=== PATIENT | female | born 2000 | race Caucasian/White ===

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

== ENCOUNTER 2020-06-26 08:30 | Emergency (ER) | payer OTHER ==
[~2020-06-26] VITALS: Ht 172.7 cm; Wt 96.2 kg
[~2020-06-26 08:30] MED LIST changes: +BISM87SU PO; +ONDA4ODT MM
[2020-06-26] MEDS ORDERED: Aspir 8181 MG PO (08:51)
== END 2020-06-26 11:26 | disposition home or self-care (01) ==
LOC: ER 08:30
DX: G43.909 Migraine, unspecified, not intractable, without status migrainosus (principal); Z79.82 Long term (current) use of aspirin
CPT/HCPCS: 96372-59; 96374; 96375; 99284-25; J0780; J1200; J1885; J3030

== ENCOUNTER 2021-01-02 19:40 | Emergency (ER) | payer OTHER ==
[~2021-01-02] VITALS: Ht 172.7 cm; Wt 86.2 kg
[~2021-01-02 19:40] MED LIST changes: +Aspir 8181 MG PO
== END 2021-01-02 20:46 | disposition home or self-care (01) ==
LOC: ER 19:40
DX: K05.10 Chronic gingivitis, plaque induced (principal); K02.9 Dental caries, unspecified
CPT/HCPCS: 99282

== ENCOUNTER 2022-05-20 08:52 | Emergency (ER) | payer OTHER ==
[~2022-05-20] VITALS: Ht 175.3 cm; Wt 78.0 kg
[2022-05-20 09:26] LABS: BASOPHILS ABSOLUTE AUTO 0.02 K/mm3 (0.00-0.23); BASOPHILS PERCENT AUTO 0 % (0-2); EOSINOPHILS ABSOLUTE AUTO 0.06 K/mm3 (0.00-0.68); EOSINOPHILS PERCENT AUTO 1 % (0-6); Hematocrit 39.5 % (33.0-51.0); Hemoglobin 13.6 g/dL (11.5-16.0); IMMATURE GRAN ABSOLUTE AUTO 0.04 K/mm3 (0.00-0.10); IMMATURE GRAN PERCENT AUTO 0 % (0-1); LYMPHOCYTES ABSOLUTE AUTO 0.74 K/mm3 (0.84-5.20); LYMPHOCYTES PERCENT AUTO 7 % (21-46); MONOCYTES PERCENT AUTO 5 % (4-13); Mean Corpuscular HGB 30.1 pg (26.0-34.0); Mean Corpuscular HGB Conc 34.4 g/dL (31.5-36.5); Mean Corpuscular Volume 87 fL (80-100); Mean Platelet Volume 8.5 fL (9.1-12.4); NEUTROPHILS ABSOLUTE AUTO 9.78 K/mm3 (1.96-9.15); NEUTROPHILS PERCENT AUTO 88 % (41-73); Platelet Count 227 K/mm3 (150-400); RDW Coefficient Variation 12.4 % (11.7-14.2); RDW Standard Deviation 40.2 fL (35.1-46.3); Red Blood Cell Count 4.52 M/mm3 (3.80-5.20); White Blood Cell Count 11.14 K/mm3 (4.00-11.30)
[2022-05-20 09:44] LABS: Albumin, Blood 3.8 g/dL (3.4-5.0); Bilirubin, Total 0.6 mg/dL (0.1-1.0); Bun/Creatinine Ratio 24.4 (12.0-20.0); Calcium, Blood 8.5 mg/dL (8.5-10.1); Creatinine, Blood 0.66 mg/dL (0.40-1.00); Globulin, Blood 3.9 g/dL (2.2-4.0); Potassium, Blood 4.1 mmol/L (3.5-5.5); Total Protein, Blood 7.7 g/dL (6.4-8.2)
[2022-05-20 09:44] LABS: Source, Urine Clean Catch
[2022-05-20 09:49] LABS: Appearance, Urine Clear (Clear); Bilirubin, Urine Neg (Neg); Blood, Urine Neg (Neg); Color, Urine Yellow (P-Yellow); Glucose Qualitative, Urine Neg (Neg); Ketones, Urine Neg (Neg); Leukocyte Esterase, Urine Neg (Neg); Nitrite, Urine Neg (Neg); Protein, Urine Neg (Neg); Specific Gravity, Urine 1.015 (1.003-1.022); Urobilinogen, Urine NORM (Normal)
[2022-05-20] MEDS ORDERED: ONDA4ODT SL (12:31)
== END 2022-05-20 12:40 | disposition home or self-care (01) ==
LOC: ER 08:52
PROVIDERS: Student in an Organized Health Care Education/Training Program
DX: B34.9 Viral infection, unspecified (principal); K62.5 Hemorrhage of anus and rectum; F17.200 Nicotine dependence, unspecified, uncomplicated
CPT/HCPCS: 36415; 80053; 81003; 81025; 85025; J2405

== ENCOUNTER 2025-05-17 00:06 | Emergency (ER) | payer OTHER ==
[~2025-05-17] VITALS: Ht 172.7 cm; Wt 97.5 kg
[~2025-05-17 00:06] MED LIST changes: +ONDA4ODT SL
[2025-05-17 00:33] VITALS: BP 139/101
[2025-05-17] MEDS ORDERED: CEPH500 PO (01:08)
[2025-05-17] MEDS ORDERED: Bactrim Ds Tab1 EACH PO (01:08)
[2025-05-17] MEDS ORDERED: Mupirocin22 GM TOP (01:08)
[2025-05-17] MEDS ORDERED: Trimethoprim/Sulfamethoxazole DS Tab PO ONE (01:10)
== END 2025-05-17 01:55 | disposition home or self-care (01) ==
LOC: ER 00:06
DX: L03.311 Cellulitis of abdominal wall (principal); F17.200 Nicotine dependence, unspecified, uncomplicated
CPT/HCPCS: 99282; A9270